=== PATIENT | female | born 1980 | race Two or more races ===

== ENCOUNTER 2025-05-16 09:16 | Outpatient (CLI) | payer OTHER, BC, SELFPAY ==
[2025-05-17 17:17] LABS: HPV Source Cervix; HPV, High Risk by TMA Not Detected
== END 2025-05-16 09:17 | disposition home or self-care (01) ==
PROVIDERS: Visit Provider Obstetrics & Gynecology
DX: Z00.00 Encounter for general adult medical examination without abnormal findings (principal); F41.9 Anxiety disorder, unspecified; N93.9 Abnormal uterine and vaginal bleeding, unspecified; Z79.899 Other long term (current) drug therapy; Z11.51 Encounter for screening for human papillomavirus (HPV); Z12.4 Encounter for screening for malignant neoplasm of cervix; Z13.228 Encounter for screening for other metabolic disorders; Z13.6 Encounter for screening for cardiovascular disorders
CPT/HCPCS: 80053; 80061; 82306; 84443; 87624; 87625; 88141; 88142

== ENCOUNTER 2025-07-02 07:09 | Outpatient (CLI) | payer OTHER, BC, SELFPAY ==
--- NOTE | 2025-07-02 07:15 | CRLHL7_ITS ---
For Patients: As a result of the Century Cures Act, medical imaging exams and procedure reports are released immediately into your electronic medical record. You may view this report before your referring provider. If you have questions, please contact your health care provider. INDICATION: Abnormal / Heavy Vaginal Bleeding COMPARISON: None. TECHNIQUE: 2D syed-scale and color Doppler images were acquired of the pelvis using a transabdominal and transvaginal approach. Transvaginal imaging performed to better visualize the endometrial stripe and ovaries. FINDINGS: Right frontal subserosal hypoechoic fibroid measures 2.1 x 2.0 x 0.9 cm. Posterior heterogeneous calcified fibroid measures 3.4 x 3.3 x 3.1 cm. This causes posterior mass effect upon the endometrium. The uterus measures 12.2 cm in length by 6.2 cm in AP diameter by 7.6 cm in transverse dimension. Endometrium measures 4.8 millimeters. No endometrial fluid. The right ovary measures 4.2 x 2.3 x 2.2 cm in size and the left ovary measures 4.6 x 2.0 x 2.4 cm. The ovaries demonstrate normal arterial and venous blood flow on color Doppler analysis. There are no suspicious fluid collections within the cul-de-sac. IMPRESSION: Posterior intramural fibroid within the fundus measures 3.4 cm with mass effect upon the adjacent endometrium. Endometrial thickness 4.8 millimeters. Dictated by Arun Beasley MD @ 07/02/2025 9:28:44 AM (Electronically Signed)
== END 2025-07-02 07:10 | disposition home or self-care (01) ==
LOC: US 07:10
PROVIDERS: Visit Provider Obstetrics & Gynecology
DX: N93.9 Abnormal uterine and vaginal bleeding, unspecified (principal); D25.1 Intramural leiomyoma of uterus
CPT/HCPCS: 76830; 76856